=== PATIENT | female | born 1995 | race Caucasian/White ===

== ENCOUNTER → 2018-08-22 | Outpatient (REF) | payer OTHER ==
[2018-08-23 12:39] LABS: HEPATITIS C VIRUS ABY INDEX 0.1 INDEX (<0.8)
[2018-08-23 12:39] LABS: HEPATITIS B SURFACE ANTIGEN NEGATIVE (NEGATIVE); HIV 1&2 SCREEN CENTAUR NEGATIVE (NEGATIVE)
[2018-08-25 00:06] LABS: HSV IgM TYPES 1&2 <0.91 Ratio (0.00-0.90); HSV TYPE I IgG SPECIFIC <0.91 index (0.00-0.90); HSV TYPE II IgG SPECIFIC <0.91 index (0.00-0.90)
== END ==
LOC: M LAB REF 17:28
DX: N76.0 Acute vaginitis (principal)

== ENCOUNTER 2018-12-12 15:29 | Emergency (ER) | payer OTHER ==
[~2018-12-12] VITALS: Ht 180.3 cm; Wt 70.0 kg
[2018-12-12 15:30] VITALS: BP 133/60
[2018-12-12] MEDS ORDERED: SERT25TA88 PO (15:42)
[2018-12-12] MEDS ORDERED: NS 1,000 ML IV ONE (16:00)
[2018-12-12 16:06] LABS: HEMATOCRIT 38.1 % (36.0-47.0); HEMOGLOBIN 13.1 g/dl (12.0-15.5); RED BLOOD COUNT 4.14 10^6/uL (4.00-5.40); WHITE BLOOD COUNT 11.1 10^3/uL (4.0-10.0)
[2018-12-12 16:07] LABS: BASO % 0.2 % (0.0-1.0); EOS % 0.4 % (0.0-3.0); LYMPH # 2.2 10^3/uL (1.5-6.5); LYMPH % 19.4 % (24.0-44.0); MEAN CORPUSCULAR HEMOGLOBIN 31.6 pg (27.0-33.0); MEAN CORPUSCULAR HGB CONC 34.4 g/dl (32.0-36.5); MONO # 0.7 10^3/uL (0.0-0.8); MONO % 6.5 % (0.0-5.0); NEUTROPHILS # 8.1 10^3/uL (1.8-7.7); PLATELET COUNT, AUTOMATED 250 10^3/uL (150-450)
[2018-12-12] MEDS ORDERED: PRENTAB9 PO (16:44)
[2018-12-12 16:54] LABS: BLOOD UREA NITROGEN 14 MG/DL (7-18); CARBON DIOXIDE LEVEL 25 MEQ/L (21-32); CHLORIDE LEVEL 103 MEQ/L (98-107); CREATININE FOR GFR 0.72 MG/DL (0.55-1.30); GLUCOSE, FASTING 76 MG/DL (70-100); POTASSIUM SERUM 4.1 MEQ/L (3.5-5.1); SODIUM LEVEL 138 MEQ/L (136-145)
--- NOTE | 2018-12-12 17:25 | REP ---
Obstetric sonography: Multiple gestation. History: Cramping and contractions. Comparison study December 06, 2018. Sonographic findings: A diamniotic dichorionic twin gestation is seen. An anterior placenta is seen grade 0 without evidence of previa or abruption. The cervix is seen to be open with fetus A arm in the external cervical os. Amniotic sac is seen bulging from the cervix. There is concordant growth of each twin. Twin A is transverse in lie with its head to the maternal right. Twin B is transverse in lie with head to the maternal left. Amniotic fluid is subjectively normal around twin B. The deepest pocket of amniotic fluid adjacent to twin B is 3.2 cm. Biometry chart fetus A: BPD 4.5 cm = 19 weeks 3 daysHead circumference 15.7 cm = 18 weeks 4 daysAbdominal circumference 14.3 cm = 19 weeks 4 daysFemur length 3.1 cm = 19 weeks 3 daysHumeral length 2.7 cm = 18 weeks 4 daysHC/AC ratio normal 1.10.Cephalic index normal 0.81Estimated weight 293 grams, 0 pounds 10 ounces, 60th percentile for 19 weeks 1 day. Biometry chart fetus B: BPD 4.5 cm = 19 weeks 4 daysHead circumference 15.8 cm = 18 weeks 5 daysCircumference 13.9 cm = 19 weeks 2 daysFemur length 2.9 cm = 18 weeks 6 daysHumeral length 2.8 cm = 19 weeks 0 daysHC/AC ratio normal 1.14Cephalic index normal 0.81Estimated weight 271 grams, 0 pounds 9 ounces, 45th percentile for 19 weeks 1 day. AMANDO low 3.2 cm. Impression: Viable twin intrauterine gestation at 19 weeks 1 day by today's sonographic criteria. GRAHAM by today's ultrasound May 07, 2019. The cervix is dilated and open with protruding membranes and parts at the external cervical os. Electronically Signed by Skyler Lee MD 12/12/2018 05:32 P
[2018-12-13] MEDS ORDERED: IBUP-1114 PO (16:54)
[2018-12-13] MEDS ORDERED: MAPA500T2 PO (16:54)
== END 2018-12-12 16:47 | disposition admitted as inpatient to this hospital (09) ==
LOC: M ED 15:29
DX: O60.02 Preterm labor without delivery, second trimester (principal); O30.042 Twin pregnancy, dichorionic/diamniotic, second trimester; Z3A.19 19 weeks gestation of pregnancy

== ENCOUNTER 2018-12-12 16:30 | Inpatient (IN) | payer OTHER ==
[2018-12-12] VITALS (7 sets, daily range): BP systolic 108–150; BP diastolic 55–83
[~2018-12-12] VITALS: Ht 157.5 cm; Wt 75.0 kg
[~2018-12-12 16:30] MED LIST: SERT25TA88 PO
[2018-12-12] MEDS ORDERED: PRENTAB9 PO (16:44)
[2018-12-12] MEDS ORDERED: LR 800 ML IV ONE (16:45)
[2018-12-12] MEDS ORDERED: INDOMETHACIN 25 MG CAP PO ONE (18:00)
[2018-12-12] MEDS ORDERED: LR 1,000 ML IV SCH (18:12)
[2018-12-12 18:49] LABS: APPEARANCE, URINE CLEAR (CLEAR); BACTERIA, URINE AUTO NEGATIVE (NEGATIVE); BILIRUBIN, URINE AUTO NEGATIVE (NEGATIVE); BLOOD, URINE BLOOD NEGATIVE (NEGATIVE); COLOR, URINE STRAW (YELLOW); GLUCOSE, URINE (UA) AUTO NEGATIVE (NEGATIVE); KETONE, URINE AUTO NEGATIVE (NEGATIVE); LEUKOCYTE ESTERASE, URINE AUTO NEGATIVE (NEGATIVE); NITRITE, URINE AUTO NEGATIVE (NEGATIVE); PROTEIN, URINE AUTO NEGATIVE (NEGATIVE); RBC, URINE AUTO 0 /HPF (0-3); SPECIFIC GRAVITY URINE AUTO 1.009 (1.002-1.035); SQUAMOUS EPITHELIAL CELL UR AU 0 /HPF (0-6); UROBILINOGEN, URINE AUTO 0.2 mg/dL (0.0-2.0); WBC, URINE AUTO 1 /HPF (0-3)
[2018-12-12 18:57] LABS: AMPHETAMINES URINE REFLEX NEGATIVE (NEGATIVE); BARBITURATES URINE REFLEX NEGATIVE (NEGATIVE); BENZODIAZEPINES URINE REFLEX NEGATIVE (NEGATIVE); CANNABINOIDS URINE REFLEX NEGATIVE (NEGATIVE); COCAINE METABOLITE URINE REFLE NEGATIVE (NEGATIVE); METHADONE URINE REFLEX NEGATIVE (NEGATIVE); OPIATES URINE REFLEX NEGATIVE (NEGATIVE); PHENCYCLIDINE URINE REFLEX NEGATIVE (NEGATIVE)
[2018-12-12] MEDS ORDERED: AMPICILLIN SOD 2 GM in D5W MINI-BAG PLUS 100 ML IV ONE (19:15)
[2018-12-12] MEDS ORDERED: ACETAMINOPHEN TAB 650MG DOSE (2X325MG) PO ONE (19:30)
--- NOTE | 2018-12-12 19:58 | HPE ---
DATE OF ADMISSION: 12/12/2018 Mamta is a 22-year-old female 2, para 0-0-1-0 who had a spontaneous delivery at 22 weeks, baby survived for approximately 5 hours after delivery. The patient is now with a twin gestation at 18 weeks and 6/7 by an early ultrasound. She presented to labor and delivery today after experiencing pain and vaginal bleeding. Upon evaluation in the emergency room, she was found to have Twin A in breech presentation with a questionable foot in the vagina. Upon evaluation here in labor and delivery, a bedside ultrasound was done by me, showed to have dichorionic/diamniotic (Di/Di) twins, both with intact membranes. The cervix is completely dilated with a bulging membrane. Fluid appeared to be clear on observation. Her record reviewed. She did initiate care with Cony Prakash, had her first baby with her, supposedly had a spontaneous AB at 22 weeks with the baby surviving for 5 hours. The working diagnosis at that point was abruption with labor. During this , the patient was not treated for or observed for incompetent cervix and also was not treated for possible labor. According to the record, she had a consultation with center, and the recommendation was made not to treat with 17-hydroxyprogesterone. The rest of her labs: Blood type was O+, rubella immune, hepatitis negative, HIV negative. GC, chlamydia was done earlier and that was negative. Her most recent level II ultrasound was done on the , which shows a twin-twin gestation with twin A in the 97th percentile for weight, twin B 75th percentile, with a cervical length of approximately 3 cm. PAST MEDICAL HISTORY: Significant for depression. PAST SURGICAL HISTORY: Denies. SOCIAL HISTORY: Denies any alcohol, drugs or cigarette smoking. REVIEW OF SYSTEMS: Unremarkable. MEDICATIONS: vitamin. ALLERGIES: No known drug allergies. PHYSICAL EXAMINATION ON ADMISSION: Normal appearing female in some level of discomfort. HEENT: Grossly within normal limits. Her abdomen was soft, nontender, nondistended but gravid. Extremities: No clubbing, cyanosis or edema. Sterile speculum exam done with old blood in the vault. This was cleared. After clearing the old blood in the vault, the membranes were noted with almost a completely dilated cervix. The membrane was intact with what appears clear fluid. There was no evidence of leakage of fluid. Cultures were done. heart rate twin A in the 150s, twin B in the 140s. Initial lab reviewed. WBC was 11.1, hemoglobin and hematocrit 13.1 over 38.1, platelets of 250. Basic chemistry panel was within normal limits. Official report of ultrasound done in the emergency room not available for review. ASSESSMENT: 1. Twin gestation at 18-6/7 weeks with Di/Di twins, what appears to be completely dilated cervix. Cannot rule out infection. Rule out incompetent cervix versus labor. 2. History of delivery at 22 weeks. PLAN: The patient and her partner counseled extensively, high risk of spontaneous of both twins discussed, possibility of chorioamnionitis and even more severe sepsis discussed. There is a poor prognosis at this stage since the patient is not at viability. We also explained to the patient given that she is not febrile at this point and both twins do have a heartbeat and intact membranes, she will be observed with bedrest, cultures have been sent, will cover the patient for pain and monitor her. If there is any improvement in her cervix or the membranes retract, as a last resort we could attempt a rescue cerclage if she remains without contractions or any other incidents for at least 1-2 days. She is aware of the risk involved with a rescue cerclage, including and not limited to miscarriages. Both the patient and her partner fully understand this risk, and we will continue to monitor her for possible labor progression or if membranes retract, will consider the rescue cerclage.
[2018-12-12] MEDS ORDERED: BUTORPHANOL 2 MG/ML INJ (J0595) IV ONE (20:30)
[2018-12-12] MEDS ORDERED: PROMETHAZINE INJ 25 MG/ML VIAL (J2550) IV ONE (20:30)
[2018-12-12 20:53] LABS: CHLAMYDIA DNA AMPLIFICATION NEGATIVE (NEGATIVE); GC DNA AMPLIFICATION NEGATIVE (NEGATIVE)
[2018-12-12] MEDS ORDERED: INDOMETHACIN 25 MG CAP PO SCH (22:00)
[2018-12-12] MEDS ORDERED: OXYTOCIN 30 UNITS IN 0.9% NaCl 500ML IV BAG (J2590) As Ordered ONE (22:12)
[2018-12-12] MEDS ORDERED: OXYTOCIN DRIP 30 UNITS in APPROPRIATE DILUENT 1 EA IV SCH (22:25)
[2018-12-12] MEDS ORDERED: IBUPROFEN 800 MG TAB PO PRN (22:30)
[2018-12-12] MEDS ORDERED: ACETAMINOPHEN 500 MG TAB PO PRN (22:30)
[2018-12-12] MEDS ORDERED: MEASLES,MUMPS,RUBELLA VACCINE INJ (MMR-II) (90707) SC SCH (22:30)
[2018-12-12] MEDS ORDERED: METHYLERGONOVINE MALEATE 0.2 MG TAB PO PRN (22:30)
[2018-12-13 01:56] VITALS: BP 99/51
[2018-12-13] MEDS ORDERED: AMPICILLIN SOD 1 GM in D5W MINI-BAG PLUS 50 ML IV SCH (03:30)
[2018-12-13 04:37] VITALS: BP 81/45
[2018-12-13 05:46] VITALS: BP 86/47
[2018-12-13 05:55] VITALS: BP 119/71
[2018-12-13 06:38] LABS: BASO % 0.2 % (0.0-1.0); EOS % 0.2 % (0.0-3.0); HEMATOCRIT 27.5 % (36.0-47.0); LYMPH # 2.2 10^3/uL (1.5-6.5); LYMPH % 17.6 % (24.0-44.0); MEAN CORPUSCULAR HGB CONC 35.3 g/dl (32.0-36.5); MEAN CORPUSCULAR VOLUME 90.8 fl (80.0-96.0); MONO # 0.7 10^3/uL (0.0-0.8); MONO % 5.4 % (0.0-5.0); NEUTROPHILS # 9.6 10^3/uL (1.8-7.7); NEUTROPHILS % 76.1 % (36.0-66.0); PLATELET COUNT, AUTOMATED 215 10^3/uL (150-450); RED BLOOD COUNT 3.03 10^6/uL (4.00-5.40); WHITE BLOOD COUNT 12.5 10^3/uL (4.0-10.0)
[2018-12-13 06:46] LABS: HEMOGLOBIN 9.7 g/dl (12.0-15.5)
[2018-12-13 10:58] VITALS: BP 124/75
[2018-12-13] MEDS ORDERED: ADACEL/BOOSTRIX VACCINE (DIPHTH/PERTUSS/ACELL/TETANUS)0.5ML SYR (90715) IM ONE (12:00)
[2018-12-13] MEDS ORDERED: OXYTOCIN 30 UNITS IN 0.9% NaCl 500ML IV BAG (J2590) As Ordered ONE (14:36)
[2018-12-13] MEDS ORDERED: IBUP-1114 PO (16:54)
[2018-12-13] MEDS ORDERED: MAPA500T2 PO (16:54)
[2018-12-13 17:20] VITALS: BP 120/56
--- NOTE | 2018-12-13 18:40 | DN ---
DATE OF DELIVERY: 12/12/2018 Mamta is a 22-year-old female 2, para 0-0-1-0 with twin gestation at 18-6/7 weeks gestation with what appeared to be incompetent cervix who presented in labor with completely dilated cervix. She was then monitored in labor and delivery. However, contractions increased and she was then pushing. At this point she delivered twin A with a ruptured sac. Twin A appeared to be a female fetus, was born with no heart rate, 0. The cord was clamped and cut by the father of the baby. The placenta remained in situ. We did do a bedside ultrasound at this point, which shows that twin B still had a heart rate and was in double footling breech position with a heart rate of 150s. At this point given that she was hemodynamically stable both patient and father of the baby was counseled about wait and monitor the second twin. Poor prognosis with twin B also discussed with the patient at this point. Approximately 30 minutes later, the patient then delivered twin B and sac intact. Again clear fluid noted. No heart rate noted on delivery. was 0. Both placenta was then spontaneously delivered intact. Good hemostasis noted. There was a nuchal cord on twin B. Both patient and father of baby offered autopsy but refused at this time. Both placentas were sent to pathology for final diagnosis. Please note that the mother was in stable condition and bereavement was offered.
[2018-12-14] MEDS ORDERED: ADACEL/BOOSTRIX VACCINE (DIPHTH/PERTUSS/ACELL/TETANUS)0.5ML SYR (90715) IM ONE (09:00)
--- NOTE | 2018-12-25 09:46 | DSES ---
DATE OF ADMISSION: 12/12/2018 DATE OF DISCHARGE: 12/13/2018 FINAL DIAGNOSIS: Intrauterine at 18-6/7 weeks gestation with incompetent cervix and in active labor twin gestation. PROCEDURE DONE DURING THIS ADMISSION: Vaginal delivery of twins demise at 18-6/7 weeks gestation. CONDITION UPON DISCHARGE: Stable. DISCHARGE INSTRUCTIONS: The patient is instructed to call if there is any severe bleeding, pain or temperature greater than 101. BRIEF HISTORY: Mamta is of 22-year-old female, 2, para 0-0-1-0, twin gestation at 18-6/7 weeks of gestation, was receiving care with Cony Prakash. She had a history of prior delivery at approximately 22 weeks gestation with a similar episode where she came in and found to be dilated and in labor. She was approximately 18 weeks with this , twin gestation, presented with complaints of bleeding and abdominal pain. She was found to be in labor with what appears to be incompetent cervix. She was kept in labor and delivery and monitored. She ruptured the membranes for the first twin and delivered vaginally with a demise what appeared to be female. The second twin soon after followed and delivered also footling breech with a demise. The placenta removed without any difficulty. The patient was then monitored in labor and delivery for bleeding. She did well on the next day. She was then discharged home to followup in approximately 6 weeks with her OB provider. She is further instructed about her next delivery she might benefit from preventive cerclage and to be monitored for signs of infection.
== END 2018-12-13 18:20 | disposition home or self-care (01) | DRG 807 ==
LOC: M LDO 16:30 → M LDI 18:12 → M OBS 12-13 13:48
PROVIDERS: ADMIT Obstetrics & Gynecology; ATTEND Obstetrics & Gynecology
PROC: 10E0XZZ Delivery of Products of Conception, External Approach (ICD-10-PCS; principal; 2018-12-12)
DX: O60.12X2 Preterm labor second trimester with preterm delivery second trimester, fetus 2 (principal); Z37.4 Twins, both stillborn; O60.12X1 Preterm labor second trimester with preterm delivery second trimester, fetus 1; Z3A.18 18 weeks gestation of pregnancy